=== PATIENT | female | born 1990 | race Caucasian/White ===

== ENCOUNTER → 2016-06-07 | Outpatient (CLI) | payer OTHER ==
[2016-06-07 15:33] LABS: BASO % 0.3 % (0.0-1.0); EOS # 0.1 K/mm3 (0.0-0.50); EOS % 0.8 % (0.0-3.0); LARGE UNSTAINED CELL # 0.1 K/mm3 (0.0-0.4); LARGE UNSTAINED CELL % 1.1 % (0.0-4.0); LYMPH # 1.6 K/mm3 (1.5-6.5); LYMPH % 17.3 % (24.0-44.0); MEAN CORPUSCULAR HEMOGLOBIN 33.8 pg (27.0-33.0); MEAN CORPUSCULAR HGB CONC 35.1 g/dl (32.0-36.5); MEAN CORPUSCULAR VOLUME 96.4 fl (80.0-96.0); MONO # 0.3 K/mm3 (0.0-0.8); MONO % 3.3 % (0.0-5.0); NEUTROPHILS # 7.3 K/mm3 (1.8-7.7); PLATELET COUNT, AUTOMATED 205 k/mm3 (150-450); RED CELL DISTRIBUTION WIDTH 11.6 % (11.5-14.5); WHITE BLOOD COUNT 9.4 K/mm3 (4.0-10.0)
[2016-06-08 12:36] LABS: HIV SCRN NEGATIVE (NEGATIVE); HIV SCRN1 NEGATIVE (NEGATIVE)
[2016-06-08 12:37] LABS: CONTROL LINE INT CTR LINE PRESENT
[2016-06-09 09:21] LABS: HBsAg Prenatal NEGATIVE (NEGATIVE)
== END ==
LOC: M LAB 14:25
PROVIDERS: ATTEND Specialist
DX: Z34.81 Encounter for supervision of other normal pregnancy, first trimester (principal)

== ENCOUNTER → 2016-08-17 | Outpatient (CLI) | payer OTHER ==
--- NOTE | 2016-08-17 12:02 | REP ---
Clinical: Anatomical evaluation. Comparison: None . Findings: Examination demonstrates a single live intrauterine in cephalic presentation. motion is identified by technologist. Placenta is noted fundally and and grade zero without evidence for placenta previa or abruption. Amniotic fluid volume is normal. Cervix measures 3.8 cm in length and appears closed. No evidence for nuchal cord. Gestational age by LMP 19 weeks 3 days with GUERITA 01/08/2017. Gestational age by current measurements 19 weeks 4 days. with GUERITA 01/07/2017 . FHR equals 139 beats per minute. BPD 4.6 cm 20 weeks 0 days HC 17.0 cm 19 weeks 5 days AC 14.3 cm 19 weeks 5 days FL 3.2 cm 19 weeks 6 days HL 3.1 cm 20 weeks 2 days HC/AC ratio 1.19 Estimated weight 312 grams ( 60th percentile). Anatomical assessment demonstrates normal structures including cranium, choroid plexus, cavum, cerebellum/posterior fossa, lungs, ventricular outflow tracts, diaphragm, stomach, cord insertion/three-vessel cord, bladder, spine, and extremities. Limited evaluation of the facial profile, four-chamber heart and bilateral renal pelviectasis noted. Impression: 1. Single live intrauterine in cephalic presentation. 2. Anatomical limitations as described above may warrant reevaluation and follow-up. Remainder of the anatomical assessment complete and normal. Signed by Mainor Dias MD 08/17/2016 11:53 A
== END ==
LOC: M RAD 08:59 → M LRY 08:59
PROVIDERS: ATTEND Specialist
DX: Z36 Encounter for antenatal screening of mother (principal); Z3A.19 19 weeks gestation of pregnancy

== ENCOUNTER → 2016-10-07 | Outpatient (CLI) | payer OTHER ==
--- NOTE | 2016-10-08 04:50 | REP ---
Clinical: Anatomical evaluation. Comparison: 08/17/2016 . Findings: Examination demonstrates a single live intrauterine in cephalic presentation. motion is identified by technologist. Placenta is noted anteriorly and grade I without evidence for placenta previa or abruption. Amniotic fluid volume is normal. Cervix measures 3.3 cm in length and appears closed. Nuchal cord noted. Gestational age by LMP 26 weeks 5 days with GUERITA 01/08/2017 . Gestational age by current measurements 26 weeks 4 days with GUERITA 01/09/2017 . FHR equals 147 beats per minute. Estimated weight 1008 grams ( 49th percentile). Anatomical assessment demonstrates normal structures including cranium, choroid plexus, cavum, cerebellum/posterior fossa, facial features, lungs, four-chamber heart/ventricular outflow tracts, diaphragm, stomach, cord insertion/three-vessel cord, kidneys/bladder, and extremities. Impression: Single live intrauterine in cephalic presentation demonstrating appropriate interval growth. Nuchal cord noted. In conjunction with prior examination anatomical assessment is complete and normal. Signed by Mainor Dias MD 10/08/2016 04:41 A
== END ==
LOC: M LRY 14:00
PROVIDERS: ATTEND Advanced Practice Midwife
DX: Z34.82 Encounter for supervision of other normal pregnancy, second trimester (principal); Z36 Encounter for antenatal screening of mother; Z3A.26 26 weeks gestation of pregnancy

== ENCOUNTER → 2016-10-28 | Outpatient (CLI) | payer OTHER ==
[2016-10-28 17:57] LABS: BASO % 0.3 % (0.0-1.0); EOS # 0.1 K/mm3 (0.0-0.50); EOS % 0.8 % (0.0-3.0); LARGE UNSTAINED CELL # 0.1 K/mm3 (0.0-0.4); LARGE UNSTAINED CELL % 1.1 % (0.0-4.0); LYMPH # 1.8 K/mm3 (1.5-6.5); LYMPH % 15.4 % (24.0-44.0); MEAN CORPUSCULAR HEMOGLOBIN 34.2 pg (27.0-33.0); MEAN CORPUSCULAR HGB CONC 34.7 g/dl (32.0-36.5); MEAN CORPUSCULAR VOLUME 98.5 fl (80.0-96.0); MONO # 0.5 K/mm3 (0.0-0.8); MONO % 4.2 % (0.0-5.0); NEUTROPHILS # 8.5 K/mm3 (1.8-7.7); NEUTROPHILS % 78.3 % (36.0-66.0); PLATELET COUNT, AUTOMATED 193 k/mm3 (150-450); RED CELL DISTRIBUTION WIDTH 12.9 % (11.5-14.5); WHITE BLOOD COUNT 10.8 K/mm3 (4.0-10.0)
== END ==
LOC: M SMT 13:16
PROVIDERS: ATTEND Advanced Practice Midwife
DX: Z36 Encounter for antenatal screening of mother (principal)

== ENCOUNTER → 2016-12-15 | Outpatient (REF) | payer OTHER ==
[~2016-12-15] MED LIST: ACET50TA PO; IBUP-1114 PO; PRENTAB9 PO
== END ==
LOC: M LAB REF 13:13
PROVIDERS: ATTEND Obstetrics & Gynecology
DX: Z36 Encounter for antenatal screening of mother (principal)

== ENCOUNTER 2017-01-14 11:33 | Inpatient (IN) | payer OTHER ==
[~2017-01-14] VITALS: Ht 170.2 cm; Wt 90.0 kg
[2017-01-14] VITALS (29 sets, daily range): BP systolic 91–130; BP diastolic 47–65
[2017-01-14] MEDS ORDERED: PRENTAB9 PO (12:06)
[2017-01-14] MEDS ORDERED: miSOPROStol 50 MCG 1/2 TAB (S0191) SL SCH (13:00)
--- NOTE | 2017-01-14 13:30 | HPE ---
DATE OF ADMISSION: 01/14/2017 26-year-old 2, para 1 female at 40 and 6/7 weeks gestation by last menstrual period, consistent with 9 week ultrasound, estimated date of confinement (EDC) 01/08/2017, presents for labor induction. She denies contractions or vaginal bleeding. COURSE: The patient initiated care at 9 weeks gestation on 06/10/2016. First trimester blood pressure is 124/72. course is unremarkable. OBSTETRICAL HISTORY: In October 2012, 40 week vaginal delivery of a 7 pounds 5 ounce male , no complications. MEDICAL HISTORY: Ovarian cyst. SURGICAL HISTORY: Laparoscopy with ovarian cystectomy. ALLERGIES: None. SOCIAL HISTORY: The patient is . She denies cigarettes, alcohol or drug use during . FAMILY HISTORY: Noncontributory. PHYSICAL EXAMINATION: VITAL SIGNS: Blood pressure 108/68, pulse 84. She is in no apparent distress. HEAD/NECK EXAM: Normal. LUNGS: Clear. HEART: Regular rate and rhythm. ABDOMEN: Nontender, gravid. heart is category 1. STERILE VAGINAL EXAM: 1 to 2 cm, 50% effaced, -2 station, vertex. EXTREMITIES: Nontender. LABORATORY DATA: Blood type is O positive, Rubella immune. RPR nonreactive. Hepatitis B and C negative. HIV negative. Group B streptococcus (GBS) positive on 12/05/2016. ASSESSMENT: 26-year-old, 2, para 1 female at 40 and 6/7 gestation who presents for labor induction. Risks and benefits were discussed. The patient was admitted on 01/14/2017.
[2017-01-14 14:03] LABS: MEAN CORPUSCULAR HEMOGLOBIN 33.9 pg (27.0-33.0); MEAN CORPUSCULAR HGB CONC 35.5 g/dl (32.0-36.5); MEAN CORPUSCULAR VOLUME 95.7 fl (80.0-96.0); RED CELL DISTRIBUTION WIDTH 13.2 % (11.5-14.5); WHITE BLOOD COUNT 12.2 K/mm3 (4.0-10.0)
[2017-01-14] MEDS ORDERED: FENTANYL 2MCG/ML ROPIVACAINE 0.2% IN 0.9% NACL 200ML IVBAG As Ordered ONE (21:29)
[2017-01-14] MEDS ORDERED: NALOXONE INJ 0.4 MG/1 ML VIAL (J2310) IV PRN (22:45)
[2017-01-14] MEDS ORDERED: diphenhydrAMINE INJ 50MG/ML VIAL (J1200) IV PRN (22:45)
[2017-01-14] MEDS ORDERED: EPIDURAL/PCA KEYS XX PRN (22:45)
[2017-01-14] MEDS ORDERED: ONDANSETRON 4MG/2ML VIAL (J2405) IV PRN (22:45)
[2017-01-14] MEDS ORDERED: FENTANYL/ROPIVACAINE/NACL BAG 200 ML EPIDURAL SCH (22:45)
[2017-01-14] MEDS ORDERED: LACTATED RINGER'S 1000 ML IV PRN (22:45)
[2017-01-14] MEDS ORDERED: EPIDURAL COMMENT XX SCH (22:45)
[2017-01-14] MEDS ORDERED: REFRIGERATOR IV KEYS XX PRN (22:45)
[2017-01-14] MEDS ORDERED: PENICILLIN G POTASSIUM IV 5 MU in D5W MINI-BAG PLUS 100 ML IV STA (23:00)
[2017-01-14] MEDS ORDERED: OXYTOCIN DRIP 30 UNITS in APPROPRIATE DILUENT 1 EA IV SCH (23:15)
[2017-01-14] MEDS: ePHEDrine SULFATE 25 MG/5 ML(5MG/ML) SYRINGE IV PRN (23:35)
[2017-01-15] VITALS (35 sets, daily range): BP systolic 88–127; BP diastolic 43–57
[2017-01-15] MEDS: ePHEDrine SULFATE 25 MG/5 ML(5MG/ML) SYRINGE IV PRN (00:47)
[2017-01-15] MEDS ORDERED: PENICILLIN G POTASSIUM IV 2.5 MU in D5W 100 ML IV SCH (03:00)
[2017-01-15] MEDS ORDERED: OXYTOCIN DRIP 30 UNITS in APPROPRIATE DILUENT 1 EA IV ONE (07:30)
[2017-01-15] MEDS ORDERED: ACETAMINOPHEN 500 MG TAB PO PRN (07:30)
[2017-01-15] MEDS ORDERED: RHOGAM 300 MCG (1500 IU) INJ (J2790) IM SCH (07:30)
[2017-01-15] MEDS ORDERED: DIBUCAINE 1% OINTMENT 30GM TOP PRN (07:30)
[2017-01-15] MEDS ORDERED: DOCUSATE SODIUM 100 MG CAP PO PRN (07:30)
[2017-01-15] MEDS ORDERED: IBUPROFEN 800 MG TAB PO PRN (07:30)
[2017-01-15] MEDS ORDERED: MEASLES,MUMPS,RUBELLA VACCINE INJ (MMR-II) (90707) SC SCH (07:30)
[2017-01-15] MEDS ORDERED: METHYLERGONOVINE MALEATE 0.2 MG TAB PO PRN (07:30)
[2017-01-15] MEDS: PRENATAL VITAMINS CHEWABLE TABLET PO SCH (09:00)
[2017-01-15] MEDS ORDERED: ADACEL/BOOSTRIX VACCINE (DIPHTH/PERTUSS/ACELL/TETANUS)0.5ML SYR (90715) IM ONE (09:00)
[2017-01-16 05:59] VITALS: BP 113/59
[2017-01-16] MEDS: PRENATAL VITAMINS CHEWABLE TABLET PO SCH (08:53)
[2017-01-16] MEDS ORDERED: ACET50TA PO (10:30)
[2017-01-16] MEDS ORDERED: IBUP-1114 PO (10:30)
--- NOTE | 2017-01-17 17:14 | DN ---
DATE: 01/15/2017 PREDELIVERY DIAGNOSIS: 1. Term labor. DELIVERY DIAGNOSIS: 1. Delivered. PROCEDURES: Spontaneous vaginal delivery. FORMS DESIGNER: Cristino Toth M.D. ANESTHESIA: Epidural. ESTIMATED BLOOD LOSS: 300 mL. FINDINGS: 8 pound 10 ounce female infant with scores 8 and 9. DELIVERY SUMMARY: After a short second stage, the patient had spontaneous delivery of an 8 pound 10 ounce female , scores 8 and 9 under epidural anesthesia. Nuchal cord times one reduced manually. The shoulders delivered spontaneously with ease. The cried spontaneously and was handed to the mother. The cord was doubly clamped and cut. The placenta was delivered spontaneously and appeared to be intact. The patient received IV Pitocin immediately after delivery of the placenta. There were no vaginal lacerations present. Sponge counts were correct.
== END 2017-01-16 12:50 | disposition home or self-care (01) | DRG 775 ==
LOC: M LDI 11:33 → M OBS 01-15 09:55
PROVIDERS: ADMIT Specialist; ATTEND Specialist
PROC: 3E0DXGC Introduction of Other Therapeutic Substance into Mouth and Pharynx, External Approach (ICD-10-PCS; 2017-01-14)
PROC: 10E0XZZ Delivery of Products of Conception, External Approach (ICD-10-PCS; principal; 2017-01-15)
DX: O48.0 Post-term pregnancy (principal); Z37.0 Single live birth; Z3A.40 40 weeks gestation of pregnancy; O69.82X0 Labor and delivery complicated by other cord entanglement, without compression, not applicable or unspecified

== ENCOUNTER → 2018-03-29 | Outpatient (REF) | payer OTHER | LOC: M SFHCLERA 12:04 | DX: J02.9 Acute pharyngitis, unspecified (principal) ==

== ENCOUNTER → 2018-06-13 | Outpatient (REF) | payer OTHER ==
[~2018-06-13] MED LIST changes: -ACET50TA PO; +MAPA500T2 PO
== END ==
LOC: M LAB REF 17:49
PROVIDERS: ATTEND Specialist
DX: Z12.4 Encounter for screening for malignant neoplasm of cervix (principal)